=== PATIENT | male | born 1975 | race Caucasian/White ===

== ENCOUNTER 2018-04-02 15:49 | Day surgery (SDC) | payer OTHER ==
[~2018-04-02] VITALS: Ht 172.7 cm; Wt 97.7 kg
[2018-04-02 16:21] VITALS: BP 126/78; PULSE 50; TEMP 97.4
[2018-04-02] MEDS ORDERED: MYLICON 8080 MG/TAB. PO (16:33)
[2018-04-02] MEDS ORDERED: PROTONIX 40MG T40 MG PO (16:33)
[2018-04-02] MEDS ORDERED: PROAIR HFA0.09 MG/AC IH (16:34)
[2018-04-02] MEDS ORDERED: PROZAC 20MG20 MG PO (16:35)
[2018-04-02] MEDS ORDERED: PREVIDENTGEL1.1 DT (16:35)
[2018-04-02 16:55] VITALS: BP 126/78; PULSE 53
[2018-04-02 17:10] VITALS: BP 114/78; PULSE 54
[2018-04-02 17:25] VITALS: BP 111/74; PULSE 60
[2018-04-02 17:40] VITALS: BP 114/82; PULSE 54
== END 2018-04-02 18:03 | disposition home or self-care (01) ==
LOC: SDCO 15:49
DX: T18.128A Food in esophagus causing other injury, initial encounter (principal); K21.9 Gastro-esophageal reflux disease without esophagitis
CPT/HCPCS: J2250; J3010

== ENCOUNTER 2018-07-06 12:58 | Day surgery (SDC) | payer OTHER ==
[~2018-07-06] VITALS: Ht 175.3 cm; Wt 101.0 kg
[~2018-07-06 12:58] MED LIST: MYLICON 8080 MG/TAB. PO; PREVIDENTGEL1.1 DT; PROAIR HFA0.09 MG/AC IH; PROTONIX 40MG T40 MG PO; PROZAC 20MG20 MG PO
[2018-07-06 13:30] VITALS: BP 117/75; PULSE 61; TEMP 98
[2018-07-06 15:25] VITALS: BP 114/86; PULSE 59; TEMP 97.9
[2018-07-06 15:40] VITALS: BP 123/75; PULSE 50
== END 2018-07-06 16:00 | disposition home or self-care (01) ==
LOC: SDCO 12:58
DX: T85.898A Other specified complication of other internal prosthetic devices, implants and grafts, initial encounter (principal); R13.10 Dysphagia, unspecified; K21.9 Gastro-esophageal reflux disease without esophagitis
CPT/HCPCS: C1726; J2704; J7120; Q9967

== ENCOUNTER 2018-07-10 08:52 | Day surgery (SDC) | payer OTHER ==
[~2018-07-10] VITALS: Ht 175.3 cm; Wt 101.3 kg
[2018-07-10 09:17] VITALS: BP 127/83; PULSE 45; TEMP 98.5
[2018-07-10 10:25] VITALS: BP 110/64; PULSE 54; TEMP 98.2
[2018-07-10 10:30] VITALS: BP 112/67; PULSE 57
[2018-07-10 10:45] VITALS: BP 115/72; PULSE 51
== END 2018-07-10 10:58 | disposition home or self-care (01) ==
LOC: SDCO 08:52
DX: T85.898A Other specified complication of other internal prosthetic devices, implants and grafts, initial encounter (principal); K22.2 Esophageal obstruction; R13.10 Dysphagia, unspecified; K21.9 Gastro-esophageal reflux disease without esophagitis
CPT/HCPCS: C1726; J2704; J7120; Q9967

== ENCOUNTER 2018-07-15 10:01 | Day surgery (SDC) | payer OTHER ==
[~2018-07-15] VITALS: Ht 175.3 cm; Wt 100.6 kg
[2018-07-15 10:14] VITALS: BP 114/81; PULSE 61; TEMP 98.2
[2018-07-15] MEDS ORDERED: MEDROL 4MG DOSPA4 MG PO (10:20)
[2018-07-15 12:00] VITALS: BP 109/88; PULSE 58; TEMP 98.4
[2018-07-15 12:15] VITALS: BP 125/81; PULSE 48
[2018-07-15 12:20] VITALS: BP 103/68; PULSE 46
== END 2018-07-15 12:20 | disposition home or self-care (01) ==
LOC: SDCO 10:01
DX: K22.2 Esophageal obstruction (principal); K21.9 Gastro-esophageal reflux disease without esophagitis; T85.9XXA Unspecified complication of internal prosthetic device, implant and graft, initial encounter; F43.10 Post-traumatic stress disorder, unspecified; Z88.0 Allergy status to penicillin
CPT/HCPCS: C1726; J2704; J7030

== ENCOUNTER 2018-12-11 06:21 | Day surgery (SDC) | payer OTHER ==
[~2018-12-11] VITALS: Ht 172.7 cm; Wt 104.5 kg
[~2018-12-11 06:21] MED LIST changes: +MEDROL 4MG DOSPA4 MG PO
[2018-12-11 07:00] VITALS: BP 117/71; PULSE 50; TEMP 97.8
[2018-12-11 08:00] VITALS: BP 104/65; PULSE 56; TEMP 97.7
--- NOTE | 2018-12-11 08:00 | NUR ---
Pt to GI bay 5 via cart from ENDO. Pt awake and alert. Denies pain or nausea. Muffin and soda given per pt request. Pt made comfortable in recliner. Warm blanket provided. Will continue to monitor. Call light within reach.
[2018-12-11 08:15] VITALS: BP 112/78; PULSE 50
--- NOTE | 2018-12-11 08:15 | NUR ---
Pt continues to rest. Tolerating food and fluids without difficulties. IV site discontinued with all parts intact. into speak with pt.
[2018-12-11 08:26] VITALS: BP 101/60; PULSE 55
--- NOTE | 2018-12-11 08:30 | NUR ---
Discharge intstructions reviewed. Pt voices understanding. Pt up to dress. Call light within reach.
--- NOTE | 2018-12-11 08:35 | NUR ---
Pt escorted to private car via wheel chair. Pt accompanied home by his .
== END 2018-12-11 08:35 | disposition home or self-care (01) ==
LOC: SDCO 06:21
DX: K22.2 Esophageal obstruction (principal); Z97.8 Presence of other specified devices; Z79.899 Other long term (current) drug therapy
CPT/HCPCS: J2704; J7030

== ENCOUNTER 2019-01-22 10:22 | Day surgery (SDC) | payer OTHER ==
[~2019-01-22] VITALS: Ht 172.7 cm; Wt 103.7 kg
[2019-01-22 11:08] VITALS: BP 110/74; PULSE 57; TEMP 97
[2019-01-22 12:35] VITALS: BP 110/74; PULSE 51; TEMP 98.3
--- NOTE | 2019-01-22 12:35 | NUR ---
Patient returned back to bay 2. Alert and orieted but drowsy. Ambulated to chair without difficulty. No complaints of pain or nausea. States would just like to sleep at this time. Vital signs WNL. Call trejo within reach, will continue to monitor.
[2019-01-22 12:50] VITALS: BP 111/75; PULSE 55
--- NOTE | 2019-01-22 12:50 | NUR ---
Patient states he is feeling well and ready to go eat lunch. Vital signs WNL. Water given. Tolerating without difficulty. Will continue to monitor.
[2019-01-22 13:05] VITALS: BP 121/78; PULSE 54
--- NOTE | 2019-01-22 13:05 | NUR ---
Patient tolerating drink without difficulty. Vital signs WNL. Discharge instructions reviewed with . Endoscopy report given to patient per MD. Patient to get dressed at this time.
--- NOTE | 2019-01-22 13:10 | NUR ---
Patient walked down to front [facility]. to drive patient home. Discharge packet in hand.
[2019-01-22 13:53] VITALS: BP 107/65; PULSE 49
== END 2019-01-22 13:10 | disposition home or self-care (01) ==
LOC: SDCO 10:22
DX: K22.2 Esophageal obstruction (principal); K21.9 Gastro-esophageal reflux disease without esophagitis; R53.82 Chronic fatigue, unspecified; Z88.0 Allergy status to penicillin
CPT/HCPCS: C1726; J2704; J3010; J7030

== ENCOUNTER 2019-02-03 12:35 | Day surgery (SDC) | payer OTHER ==
[~2019-02-03] VITALS: Ht 172.7 cm; Wt 103.0 kg
[2019-02-03 12:55] VITALS: BP 123/85; PULSE 52; TEMP 98
[2019-02-03 14:25] VITALS: BP 121/73; PULSE 52; TEMP 97.7
--- NOTE | 2019-02-03 14:25 | NUR ---
Pt to [facility] bay 6 via cart from [employer]. Pt awake and alert. Denies pain or nausea. Pt refuses drink/food. Pt states "I just want to leave and go out to eat." Call light within reach. Side rails up x2.
[2019-02-03 14:35] VITALS: BP 121/73; PULSE 50
--- NOTE | 2019-02-03 14:35 | NUR ---
Discharge instructions reviewed. Pt voices understanding. IV site discontinued with all parts intact. Pt up to dress. Call light within reach.
--- NOTE | 2019-02-03 14:45 | NUR ---
Pt escorted to private car via wheel chair. Pt accompaned home by his .
== END 2019-02-03 14:45 | disposition home or self-care (01) ==
LOC: SDCO 12:35
DX: T85.9XXA Unspecified complication of internal prosthetic device, implant and graft, initial encounter (principal); R13.10 Dysphagia, unspecified; K22.2 Esophageal obstruction; K21.9 Gastro-esophageal reflux disease without esophagitis; K44.9 Diaphragmatic hernia without obstruction or gangrene; Z79.899 Other long term (current) drug therapy
CPT/HCPCS: C1726; J2704; J7120

== ENCOUNTER 2019-02-08 12:19 | Day surgery (SDC) | payer OTHER ==
[~2019-02-08] VITALS: Ht 172.7 cm; Wt 105.1 kg
[2019-02-08 12:39] VITALS: BP 128/88; PULSE 57; TEMP 97.2
[2019-02-08 14:35] VITALS: BP 133/83; PULSE 54; TEMP 97.2
--- NOTE | 2019-02-08 14:44 | NUR ---
PATIENT ARRIVES FROM OR TO BAY 3 VIA CART. AMBULATES WITH ASSISTANCE TO CHAIR. AROUSES TO NAME, DROWSY. DECLINES FOOD OR DRINK. WARM BLANKET GIVEN AND CALL LIGHT IN REACH. VITAL SIGNS STARTED.
[2019-02-08 15:06] VITALS: BP 136/84; PULSE 58; TEMP 98.2
--- NOTE | 2019-02-08 15:13 | NUR ---
ALERT AND ORIENTED. IV DC'D. DISCHARGE PAPERS SIGNED, VERBALIZED UNDERSTANDING. DECLINED A WHEELCHAIR, AMBULATED WITH STEADY GAIT TO PERSONAL CAR.
== END 2019-02-08 15:06 | disposition home or self-care (01) ==
LOC: SDCO 12:19
DX: T85.858A Stenosis due to other internal prosthetic devices, implants and grafts, initial encounter (principal); R13.10 Dysphagia, unspecified; K21.9 Gastro-esophageal reflux disease without esophagitis; Z79.899 Other long term (current) drug therapy
CPT/HCPCS: C1726; J2704

== ENCOUNTER 2019-06-02 06:16 | Day surgery (SDC) | payer OTHER ==
[~2019-06-02] VITALS: Ht 172.7 cm; Wt 97.1 kg
[2019-06-02 07:04] VITALS: BP 118/86; PULSE 52; TEMP 97.3
[2019-06-02 07:42] VITALS: BP 143/75; PULSE 74
--- NOTE | 2019-06-02 07:42 | NUR ---
Patient returns to bay 3 per cart and transfers from cart to recliner. IV fluids infusing. Patient denies pain or nausea. Able to swallow water.
[2019-06-02 07:57] VITALS: BP 133/72; PULSE 71
--- NOTE | 2019-06-02 07:57 | NUR ---
IV discontinued and given dismissal instructions. Dresses self and denies difficulty swallowing. Instructed to go home and rest and no driving for 12 hours.
--- NOTE | 2019-06-02 07:59 | NUR ---
Patient dismissed to home per private vehicle driven by friend and escorted to car ambulatory by RN.
[2019-06-02 12:19] VITALS: BP 100/66; PULSE 47
== END 2019-06-02 07:59 | disposition home or self-care (01) ==
LOC: SDCO 06:16
DX: K22.2 Esophageal obstruction (principal); K21.9 Gastro-esophageal reflux disease without esophagitis; T85.9XXA Unspecified complication of internal prosthetic device, implant and graft, initial encounter; Z88.0 Allergy status to penicillin; Z87.891 Personal history of nicotine dependence
CPT/HCPCS: C1726; J2704; J3010; J7120